=== PATIENT | male | born 1955 | race Caucasian/White ===

== ENCOUNTER 2021-01-26 19:30 | Inpatient (IN) | payer MEDICARE, MEDICAID ==
[2021-01-26] MEDS ORDERED: Morphine 4 MG/ML VIAL ONE ×2 (20:24→22:43)
[2021-01-26] MEDS ORDERED: Ondansetron ODT 4 MG TAB ONE (20:25)
[2021-01-26] MEDS ORDERED: Nitroglycerin 2% Ointment 1 INCH/1 GM Packet ONE (20:25)
[2021-01-26] MEDS ORDERED: Aspirin Chewable 81 MG TAB ONE (20:25)
[2021-01-26 20:58] LABS: #Basophils 0.1 thou/uL (0.0-0.2); #Eosinphils 0.1 thou/uL (0.0-0.7); #Monocytes 1.1 thou/uL (0.11-0.59); #Neutrophils 6.7 thou/uL (1.40-6.50); %Eosinophils 0.6 % (0.0-10.0); %Lymphocytes 19.8 % (21.0-51.0); %Monocytes 10.9 % (0.0-10.0); %Neutrophils 67.7 % (42.0-75.0); Hemoglobin 15.8 g/dL (14.0-18.0); Mean Corpuscular HGB CONC 34.5 g/dL (32.0-36.0); Mean Corpuscular Hemoglobin 31.7 pg (27.0-31.0); Mean Corpuscular Volume 91.7 fL (78.0-98.0); Mean Platelet Volume 6.3 fL (7.4-10.4); Platelet Count 232 thou/uL (130-400); RBC Distribution Width 12.3 % (11.5-14.5); White Blood Cell (WBC) Count 9.9 thou/uL (4.8-10.8)
[2021-01-26 21:19] LABS: ALT (SGPT) 22 U/L (8-55); AST (SGOT) 15 U/L (5-34); Albumin 4.1 g/dL (3.4-4.8); Alkaline Phosphatase 69 U/L (40-110); Anion Gap 13 mmol/L (10-20); BUN (Urea Nitrogen) 17 mg/dL (8.4-25.7); Bilirubin, Total 0.3 mg/dL (0.2-1.2); Calc. Creatinine Clearance 0 mL/min (70-130); Calcium 9.2 mg/dL (7.8-10.44); Carbon Dioxide 25 mmol/L (23-31); Chloride 102 mmol/L (98-107); Globulin 2.8 g/dL (2.4-3.5); Glucose 93 mg/dL (80-115); Lipase 41 U/L (8-78); Potassium 4.7 mmol/L (3.5-5.1); Protein, Total 6.9 g/dL (5.8-8.1); Sodium 135 mmol/L (136-145)
[2021-01-26 21:50] LABS: Bilirubin Negative (Negative); Blood, Urine Negative (Negative); Clarity Clear (Clear); Glucose, Urine (Dipstick) Normal (Negative); Ketone, Urine Negative (Negative); Leukocyte Negative Leu/uL (Negative); Nitrite Negative (Negative); Protein, Urine (Dipstick) Negative (Neg-Trace); Specific Gravity, Urine 1.009 (1.002-1.036); Urobilinogen Normal mg/dL (Less than 2); pH, Urine 6.5 (5.0-9.0)
[2021-01-26] MEDS ORDERED: Ondansetron PF 4 MG/2 ML Vial ONE (22:49)
[2021-01-27 00:30] LABS: Troponin I Less than 0.010 ng/mL (< 0.028)
[2021-01-27 01:36] VITALS: BMI 27.6
[2021-01-27 03:04] LABS: Troponin I Less than 0.010 ng/mL (< 0.028)
[2021-01-27] MEDS: Morphine 2 MG/ML VIAL SLOW IVP PRN ×2 (03:54→08:16)
[2021-01-27] MEDS ORDERED: Ondansetron PF 4 MG/2 ML Vial IVP PRN (04:22)
[2021-01-27] MEDS ORDERED: Aspirin 325 MG TAB PO SCH ×2 (08:00→08:45)
[2021-01-27] MEDS ORDERED: Nitroglycerin 0.4 MG TAB (25 Tab Bottle) SL PRN (08:39)
[2021-01-27] MEDS ORDERED: Acetaminophen 325 MG TAB PO PRN (08:41)
[2021-01-27] MEDS ORDERED: Senokot S 8.6-50 MG TAB PO PRN (08:41)
[2021-01-27] MEDS ORDERED: Calcium Carbonate 500 MG ChewTAB PO PRN (08:41)
[2021-01-27] MEDS ORDERED: Cyclobenzaprine 10 MG TAB PO PRN (08:42)
[2021-01-27] MEDS ORDERED: hydrALAZINE 20 MG/ML VIAL SLOW IVP PRN (08:43)
[2021-01-27] MEDS ORDERED: Famotidine 20 MG TAB PO SCH (09:00)
[2021-01-27] MEDS: clonazePAM 1 MG TAB PO SCH ×2 (09:15→20:53)
[2021-01-27] MEDS: hydrALAZINE 25 MG TAB PO SCH ×3 (09:17→20:53)
[2021-01-27] MEDS ORDERED: Ketorolac Tromethamine 30 MG/ML VIAL IVP SCH (10:30)
[2021-01-27] MEDS: NIFEdipine XL 60 MG TAB PO SCH (11:02)
[2021-01-27] MEDS: Carvedilol 25 MG TAB PO SCH ×2 (11:03→20:53)
[2021-01-27] MEDS: Sodium Chloride 0.9% 1,000 ML IV SCH ×2 (11:03→20:54)
[2021-01-27 13:02] LABS: SARS-CoV-2 PCR by NAA Not Detected (NotDetected)
[2021-01-27] MEDS: Ibuprofen 600 MG TAB PO SCH ×2 (13:41→20:55)
[2021-01-27] MEDS ORDERED: Morphine 2 MG/ML VIAL SLOW IVP PRN (14:22)
[2021-01-27] MEDS ORDERED: Lidocaine 5% Patch TD SCH (14:30)
[2021-01-27] MEDS: HYDROcodone/Acetaminophen 5/325 mg Tablet PO PRN (21:29)
[2021-01-28] MEDS: HYDROcodone/Acetaminophen 5/325 mg Tablet PO PRN ×2 (01:31→05:26)
[2021-01-28] MEDS ORDERED: Transdermal Patch Removal TOP SCH (02:30)
[2021-01-28 04:35] LABS: #Basophils 0.1 thou/uL (0.0-0.2); #Lymphocytes 2.2 thou/uL (1.20-3.40); #Monocytes 0.8 thou/uL (0.11-0.59); %Eosinophils 0.5 % (0.0-10.0); %Lymphocytes 27.1 % (21.0-51.0); %Monocytes 10.2 % (0.0-10.0); %Neutrophils 61.2 % (42.0-75.0); Hemoglobin 13.8 g/dL (14.0-18.0); Mean Corpuscular HGB CONC 33.3 g/dL (32.0-36.0); Mean Corpuscular Hemoglobin 30.7 pg (27.0-31.0); Mean Corpuscular Volume 92.2 fL (78.0-98.0); Mean Platelet Volume 6.2 fL (7.4-10.4); Platelet Count 204 thou/uL (130-400); RBC Distribution Width 12.2 % (11.5-14.5); White Blood Cell (WBC) Count 8.2 thou/uL (4.8-10.8)
[2021-01-28 04:56] LABS: Anion Gap 12 mmol/L (10-20); BUN (Urea Nitrogen) 16 mg/dL (8.4-25.7); Calc. Creatinine Clearance 90 mL/min (70-130); Calcium 8.3 mg/dL (7.8-10.44); Carbon Dioxide 26 mmol/L (23-31); Chloride 104 mmol/L (98-107); Glucose 85 mg/dL (80-115); Potassium 4.5 mmol/L (3.5-5.1); Sodium 137 mmol/L (136-145)
[2021-01-28] MEDS: hydrALAZINE 25 MG TAB PO SCH (08:37)
[2021-01-28] MEDS: Ibuprofen 600 MG TAB PO SCH (08:38)
[2021-01-28] MEDS: Carvedilol 25 MG TAB PO SCH (08:38)
[2021-01-28] MEDS: clonazePAM 1 MG TAB PO SCH (08:39)
[2021-01-28] MEDS ORDERED: Ketorolac Tromethamine 60 MG/2 ML VIAL IM SCH (10:45)
[2021-01-28] MEDS ORDERED: Ketorolac Tromethamine 30 MG/ML VIAL IM SCH (11:00)
[2021-01-28 11:29] VITALS: BP 149/73; TEMP 97.5
[2021-01-28] MEDS: NIFEdipine XL 60 MG TAB PO SCH (11:29)
== END 2021-01-28 13:20 | disposition home or self-care (01) | DRG 194 ==
LOC: ERS 19:30 → 2NO 22:04 → OBSVTOIN 01-28 10:01
PROVIDERS: ADMIT Internal Medicine; ATTEND Family Medicine
DX: R09.1 Pleurisy (principal); E87.1 Hypo-osmolality and hyponatremia; I42.9 Cardiomyopathy, unspecified; Z20.822 Contact with and (suspected) exposure to COVID-19; I10 Essential (primary) hypertension; F41.9 Anxiety disorder, unspecified; R00.1 Bradycardia, unspecified; M19.90 Unspecified osteoarthritis, unspecified site; N18.2 Chronic kidney disease, stage 2 (mild); I12.9 Hypertensive chronic kidney disease with stage 1 through stage 4 chronic kidney disease, or unspecified chronic kidney disease; E78.5 Hyperlipidemia, unspecified; Z96.619 Presence of unspecified artificial shoulder joint; Z88.1 Allergy status to other antibiotic agents; Z88.0 Allergy status to penicillin; Z88.8 Allergy status to other drugs, medicaments and biological substances; Z79.899 Other long term (current) drug therapy; Z85.46 Personal history of malignant neoplasm of prostate; Z90.79 Acquired absence of other genital organ(s); Z83.3 Family history of diabetes mellitus
CPT/HCPCS: 36415; 71045; 80048; 80053; 81003; 83690; 84484; 85025; 85379; 93005; 93010; 94760; 96374; 96375; 96376; G0378; J1885; J2270; J2405; J7050; Q0162; U0003; U0005

== ENCOUNTER 2021-04-06 14:59 | Emergency (ER) | payer MEDICARE ==
[2021-04-06] MEDS ORDERED: Lidocaine 1% w/Epinephrine 1:100K 20 ML VIAL ONE (15:40)
[2021-04-06] MEDS ORDERED: Acetaminophen 500 MG TAB ONE (16:01)
== END 2021-04-06 16:03 | disposition home or self-care (01) ==
LOC: ERS 14:59
DX: L03.113 Cellulitis of right upper limb (principal); M79.81 Nontraumatic hematoma of soft tissue; I11.0 Hypertensive heart disease with heart failure; I50.9 Heart failure, unspecified
CPT/HCPCS: 10060

== ENCOUNTER 2021-04-08 08:07 | Emergency (ER) | payer MEDICARE, MEDICAID ==
[2021-04-08 09:07] LABS: #Basophils 0.1 thou/uL (0.0-0.2); #Eosinphils 0.1 thou/uL (0.0-0.7); #Lymphocytes 1.7 thou/uL (1.20-3.40); #Monocytes 1.1 thou/uL (0.11-0.59); #Neutrophils 6.5 thou/uL (1.40-6.50); %Basophils 0.6 % (0.0-1.0); %Eosinophils 0.6 % (0.0-10.0); %Lymphocytes 17.8 % (21.0-51.0); %Monocytes 11.3 % (0.0-10.0); %Neutrophils 69.7 % (42.0-75.0); Hemoglobin 14.2 g/dL (14.0-18.0); Mean Corpuscular HGB CONC 34.5 g/dL (32.0-36.0); Mean Corpuscular Hemoglobin 32.2 pg (27.0-31.0); Mean Corpuscular Volume 93.3 fL (78.0-98.0); Mean Platelet Volume 5.9 fL (7.4-10.4); Platelet Count 220 thou/uL (130-400); RBC Distribution Width 12.4 % (11.5-14.5); Red Blood Cell (RBC) Count 4.42 mill/uL (4.70-6.10); White Blood Cell (WBC) Count 9.3 thou/uL (4.8-10.8)
[2021-04-08 09:27] LABS: ALT (SGPT) 19 U/L (8-55); AST (SGOT) 14 U/L (5-34); Albumin 3.5 g/dL (3.4-4.8); Alkaline Phosphatase 59 U/L (40-110); Anion Gap 10 mmol/L (10-20); BUN (Urea Nitrogen) 17 mg/dL (8.4-25.7); Bilirubin, Total 0.3 mg/dL (0.2-1.2); CRP (Inflammatory) 0.89 mg/dL (= or < 0.5); Calc. Creatinine Clearance 0 mL/min (70-130); Calcium 8.6 mg/dL (7.8-10.44); Carbon Dioxide 27 mmol/L (23-31); Chloride 104 mmol/L (98-107); Globulin 2.8 g/dL (2.4-3.5); Glucose 110 mg/dL (80-115); Potassium 3.8 mmol/L (3.5-5.1); Protein, Total 6.3 g/dL (5.8-8.1); Sodium 137 mmol/L (136-145)
== END 2021-04-08 10:25 | disposition home or self-care (01) ==
LOC: ERS 08:07
DX: L03.113 Cellulitis of right upper limb (principal); I11.0 Hypertensive heart disease with heart failure; I50.9 Heart failure, unspecified; Z79.899 Other long term (current) drug therapy
CPT/HCPCS: 36415; 80053; 85025; 85652; 86140; 87040; 87070; 87205; 99283

== ENCOUNTER 2021-05-08 12:56 | Inpatient (IN) | payer MEDICARE, MEDICAID ==
[2021-05-08 13:43] LABS: Hemoglobin 14.6 g/dL (14.0-18.0); Mean Corpuscular HGB CONC 34.6 g/dL (32.0-36.0); Mean Corpuscular Volume 92.5 fL (78.0-98.0); Mean Platelet Volume 5.9 fL (7.4-10.4); Platelet Count 204 thou/uL (130-400); RBC Distribution Width 12.3 % (11.5-14.5); Red Blood Cell (RBC) Count 4.56 mill/uL (4.70-6.10); White Blood Cell (WBC) Count 7.2 thou/uL (4.8-10.8)
[2021-05-08 14:01] LABS: Band 2 % (5-11); Eosinophils 1 % (0-10); Lymphocytes 22 % (21-51); MDiff Complete? YES; Monocytes 3 % (0-10); Neutrophil 69 % (42-75); Platelet Morphology Comment Appears Adequate; RBC Morphology Normal; Reactive Lymphocytes 2 % (0-10)
[2021-05-08 14:05] LABS: ALT (SGPT) 35 U/L (8-55); AST (SGOT) 21 U/L (5-34); Albumin 3.6 g/dL (3.4-4.8); Alkaline Phosphatase 61 U/L (40-110); Anion Gap 10 mmol/L (10-20); BUN (Urea Nitrogen) 20 mg/dL (8.4-25.7); Bilirubin, Total 0.3 mg/dL (0.2-1.2); Calc. Creatinine Clearance 0 mL/min (70-130); Calcium 8.9 mg/dL (7.8-10.44); Carbon Dioxide 26 mmol/L (23-31); Chloride 105 mmol/L (98-107); Glucose 112 mg/dL (80-115); Protein, Total 6.6 g/dL (5.8-8.1); Sodium 137 mmol/L (136-145)
[2021-05-08 14:40] LABS: CKMB 1.4 ng/mL (0-6.6)
[2021-05-08] MEDS ORDERED: Aspirin Chewable 81 MG TAB ONE (15:27)
[2021-05-08] MEDS ORDERED: Acetaminophen 325 MG TAB PO PRN (16:35)
[2021-05-08] MEDS ORDERED: Ondansetron ODT 4 MG TAB PO PRN ×2 (16:36→16:48)
[2021-05-08] MEDS ORDERED: Ondansetron PF 4 MG/2 ML Vial IVP PRN ×2 (16:36→16:48)
[2021-05-08] MEDS ORDERED: Calcium Carbonate 500 MG ChewTAB PO PRN (16:48)
[2021-05-08] MEDS ORDERED: Senokot S 8.6-50 MG TAB PO PRN (16:48)
[2021-05-08] MEDS ORDERED: Carvedilol 25 MG TAB PO SCH (17:00)
[2021-05-08] MEDS: Nitroglycerin 2% Ointment 1 INCH/1 GM Packet TOP SCH (17:10)
[2021-05-08] MEDS: Acetaminophen 325 MG TAB PO PRN ×2 (17:24→21:18)
[2021-05-08] MEDS ORDERED: Lidocaine 2% Viscous Solution 10 ML, Aluminum & Magnesium Hydroxide 30 ML SSW SCH (20:15)
[2021-05-08] MEDS: Nitroglycerin 0.4 MG TAB (25 Tab Bottle) SL PRN ×2 (20:23→20:33)
[2021-05-08 20:33] LABS: Troponin I 0.014 ng/mL (< 0.028)
[2021-05-08] MEDS: clonazePAM 1 MG TAB PO SCH (21:19)
[2021-05-08 23:14] LABS: Troponin I 0.014 ng/mL (< 0.028)
[2021-05-09] MEDS: Nitroglycerin 2% Ointment 1 INCH/1 GM Packet TOP SCH ×3 (00:15→16:40)
[2021-05-09 00:30] LABS: SARS-CoV-2 PCR by NAA Not Detected (NotDetected)
[2021-05-09] MEDS: Aspirin 325 mg Enteric Coated Tablet PO SCH (09:17)
[2021-05-09] MEDS: clonazePAM 1 MG TAB PO SCH ×2 (09:17→21:37)
[2021-05-09] MEDS: NIFEdipine XL 60 MG TAB PO SCH (09:17)
[2021-05-09] MEDS ORDERED: Enoxaparin Sodium 40 MG/0.4 ML SYRINGE SC SCH (12:30)
[2021-05-09] MEDS: Carvedilol 25 MG TAB PO SCH ×2 (13:31→21:36)
[2021-05-09] MEDS: Atorvastatin Calcium 40 MG TAB PO SCH (21:36)
[2021-05-10] MEDS: Nitroglycerin 2% Ointment 1 INCH/1 GM Packet TOP SCH ×3 (02:56→17:23)
[2021-05-10 07:31] VITALS: BMI 29.0
[2021-05-10] MEDS ORDERED: Enoxaparin Sodium 40 MG/0.4 ML SYRINGE SC SCH (09:00)
[2021-05-10] MEDS: Aspirin 325 mg Enteric Coated Tablet PO SCH (09:28)
[2021-05-10] MEDS: Ubidecarenone 50 MG CAP PO SCH (09:29)
[2021-05-10] MEDS: clonazePAM 1 MG TAB PO SCH ×2 (09:29→20:35)
[2021-05-10] MEDS: NIFEdipine XL 60 MG TAB PO SCH (09:29)
[2021-05-10] MEDS: Carvedilol 25 MG TAB PO SCH ×2 (09:29→20:35)
[2021-05-10] MEDS ORDERED: Sodium Chloride 0.9% 1,000 ML IV SCH (10:30)
[2021-05-10] MEDS ORDERED: Iopamidol 370 76% 100 ML VIAL ONE (10:51)
[2021-05-10] MEDS ORDERED: Fentanyl 100 MCG/2 ML VIAL ONE (11:42)
[2021-05-10] MEDS ORDERED: Midazolam HCl 2 mg/2 ml Vial ONE (11:43)
[2021-05-10] MEDS ORDERED: Sodium Chloride 0.9% 200 ML IV PRN (12:40)
[2021-05-10] MEDS: Acetaminophen 325 MG TAB PO PRN (13:39)
[2021-05-10] MEDS: Acetaminophen/Codeine 30-300mg Tablet PO PRN (20:35)
[2021-05-10] MEDS: Atorvastatin Calcium 40 MG TAB PO SCH (20:35)
[2021-05-11] MEDS: Nitroglycerin 2% Ointment 1 INCH/1 GM Packet TOP SCH ×3 (01:10→15:58)
[2021-05-11] MEDS: Enoxaparin Sodium 40 MG/0.4 ML SYRINGE SC SCH (09:15)
[2021-05-11] MEDS: clonazePAM 1 MG TAB PO SCH ×2 (09:15→21:01)
[2021-05-11] MEDS: NIFEdipine XL 60 MG TAB PO SCH (09:15)
[2021-05-11] MEDS: Acetaminophen/Codeine 30-300mg Tablet PO PRN ×2 (09:15→15:58)
[2021-05-11] MEDS: Aspirin 325 mg Enteric Coated Tablet PO SCH (09:16)
[2021-05-11] MEDS: Carvedilol 25 MG TAB PO SCH ×2 (09:16→21:01)
[2021-05-11] MEDS: Ubidecarenone 50 MG CAP PO SCH (09:16)
[2021-05-11] MEDS: Atorvastatin Calcium 40 MG TAB PO SCH (21:01)
[2021-05-12] MEDS: Nitroglycerin 2% Ointment 1 INCH/1 GM Packet TOP SCH ×3 (03:29→17:22)
[2021-05-12] MEDS: Enoxaparin Sodium 40 MG/0.4 ML SYRINGE SC SCH (08:53)
[2021-05-12] MEDS: Aspirin 325 mg Enteric Coated Tablet PO SCH (08:55)
[2021-05-12] MEDS: NIFEdipine XL 60 MG TAB PO SCH (08:55)
[2021-05-12] MEDS: Acetaminophen/Codeine 30-300mg Tablet PO PRN ×2 (08:56→17:22)
[2021-05-12] MEDS: clonazePAM 1 MG TAB PO SCH (08:56)
[2021-05-12] MEDS: Carvedilol 25 MG TAB PO SCH (08:56)
[2021-05-12] MEDS: Ubidecarenone 50 MG CAP PO SCH (09:07)
[2021-05-12] MEDS ORDERED: Iopamidol 370 76% 100 ML VIAL ONE (10:28)
[2021-05-12 17:32] VITALS: BP 125/61; TEMP 97.3
== END 2021-05-12 19:48 | disposition home or self-care (01) | DRG 287 ==
LOC: ERS 12:56 → 2NO 15:22 → OBSVTOIN 05-10 14:46
PROVIDERS: ADMIT Internal Medicine; ATTEND Internal Medicine
PROC: 4A023N7 Measurement of Cardiac Sampling and Pressure, Left Heart, Percutaneous Approach (ICD-10-PCS; principal; 2021-05-10)
PROC: B2111ZZ Fluoroscopy of Multiple Coronary Arteries using Low Osmolar Contrast (ICD-10-PCS; 2021-05-10)
DX: I25.110 Atherosclerotic heart disease of native coronary artery with unstable angina pectoris (principal); E78.5 Hyperlipidemia, unspecified; Z20.822 Contact with and (suspected) exposure to COVID-19; F41.9 Anxiety disorder, unspecified; M19.90 Unspecified osteoarthritis, unspecified site; I12.9 Hypertensive chronic kidney disease with stage 1 through stage 4 chronic kidney disease, or unspecified chronic kidney disease; N18.2 Chronic kidney disease, stage 2 (mild); Z88.1 Allergy status to other antibiotic agents; Z88.0 Allergy status to penicillin; Z79.82 Long term (current) use of aspirin; Z79.899 Other long term (current) drug therapy; Z85.46 Personal history of malignant neoplasm of prostate; Z90.79 Acquired absence of other genital organ(s)
CPT/HCPCS: 36415; 71045; 75574; 80053; 80061; 82553; 83880; 84484; 85025; 93005; 93010; 93458; 94760; 96372; 99152; G0378; J1650; J2250; J3010; J7050; Q9967; U0003; U0005

== ENCOUNTER 2021-06-08 17:05 | Inpatient (IN) | payer OTHER, MEDICAID ==
[2021-06-08 18:13] LABS: #Basophils 0.1 thou/uL (0.0-0.2); #Eosinphils 0.1 thou/uL (0.0-0.7); #Lymphocytes 1.8 thou/uL (1.20-3.40); #Neutrophils 7.8 thou/uL (1.40-6.50); %Basophils 0.5 % (0.0-1.0); %Eosinophils 0.5 % (0.0-10.0); %Lymphocytes 16.9 % (21.0-51.0); Hemoglobin 15.3 g/dL (14.0-18.0); Mean Corpuscular HGB CONC 33.9 g/dL (32.0-36.0); Mean Corpuscular Hemoglobin 31.1 pg (27.0-31.0); Mean Corpuscular Volume 91.6 fL (78.0-98.0); Platelet Count 236 thou/uL (130-400); Red Blood Cell (RBC) Count 4.91 mill/uL (4.70-6.10); White Blood Cell (WBC) Count 10.7 thou/uL (4.8-10.8)
[2021-06-08 18:23] LABS: ALT (SGPT) 34 U/L (8-55); AST (SGOT) 20 U/L (5-34); Albumin 3.9 g/dL (3.4-4.8); Alkaline Phosphatase 82 U/L (40-110); Anion Gap 12 mmol/L (10-20); BUN (Urea Nitrogen) 18 mg/dL (8.4-25.7); Bilirubin, Total 0.3 mg/dL (0.2-1.2); Calc. Creatinine Clearance 0 mL/min (70-130); Calcium 8.7 mg/dL (7.8-10.44); Carbon Dioxide 27 mmol/L (23-31); Chloride 102 mmol/L (98-107); Globulin 2.8 g/dL (2.4-3.5); Glucose 118 mg/dL (80-115); Potassium 4.1 mmol/L (3.5-5.1); Protein, Total 6.7 g/dL (5.8-8.1); Sodium 137 mmol/L (136-145)
[2021-06-08] MEDS ORDERED: Diltiazem 125 MG/25 ML ONE ×2 (20:52→21:21)
[2021-06-08] MEDS ORDERED: Enoxaparin Sodium 100 MG/ML SYRINGE SC SCH (21:00)
[2021-06-08] MEDS ORDERED: Diltiazem HCl 125 MG, Admixture Fee 1 EACH in Sodium Chloride 0.9% 100 ML IVPB SCH (21:00)
[2021-06-08] MEDS ORDERED: Enoxaparin Sodium 100 MG/ML SYRINGE ONE (21:01)
[2021-06-08 22:30] LABS: SARS-CoV-2 NAA Rapid Test Not Detected (NotDetected)
[2021-06-08 22:52] LABS: Troponin I Less than 0.010 ng/mL (< 0.028)
[2021-06-08] MEDS ORDERED: Ondansetron PF 4 MG/2 ML Vial IVP PRN (23:34)
[2021-06-09 00:18] VITALS: BMI 28.8
[2021-06-09] MEDS ORDERED: clonazePAM 1 MG TAB PO SCH (01:30)
[2021-06-09] MEDS: Acetaminophen 325 MG TAB PO PRN (01:35)
[2021-06-09 04:57] LABS: %Lymphocytes 23.8 % (21.0-51.0); Mean Corpuscular Volume 92.8 fL (78.0-98.0); RBC Distribution Width 12.1 % (11.5-14.5)
[2021-06-09 05:15] LABS: #Monocytes 0.9 thou/uL (0.11-0.59); #Neutrophils 5.4 thou/uL (1.40-6.50); %Basophils 0.5 % (0.0-1.0); %Eosinophils 0.5 % (0.0-10.0); %Monocytes 10.3 % (0.0-10.0); %Neutrophils 64.9 % (42.0-75.0); Hemoglobin 13.7 g/dL (14.0-18.0); Mean Corpuscular HGB CONC 33.4 g/dL (32.0-36.0); Mean Platelet Volume 6.2 fL (7.4-10.4); Platelet Count 213 thou/uL (130-400); Red Blood Cell (RBC) Count 4.43 mill/uL (4.70-6.10); White Blood Cell (WBC) Count 8.4 thou/uL (4.8-10.8)
[2021-06-09 05:20] LABS: Anion Gap 12 mmol/L (10-20); BUN (Urea Nitrogen) 17 mg/dL (8.4-25.7); Calc. Creatinine Clearance 88 mL/min (70-130); Calcium 8.3 mg/dL (7.8-10.44); Carbon Dioxide 24 mmol/L (23-31); Chloride 105 mmol/L (98-107); Glucose 84 mg/dL (80-115); Potassium 3.8 mmol/L (3.5-5.1); Sodium 137 mmol/L (136-145)
[2021-06-09 07:29] LABS: Magnesium 2.2 mg/dL (1.6-2.6)
[2021-06-09] MEDS: Carvedilol 25 MG TAB PO SCH ×2 (08:35→21:30)
[2021-06-09] MEDS ORDERED: Aspirin 325 mg Enteric Coated Tablet PO SCH (09:00)
[2021-06-09] MEDS ORDERED: Nitroglycerin 0.4 MG TAB (25 Tab Bottle) SL PRN (15:07)
[2021-06-09] MEDS ORDERED: Diltiazem HCl 125 MG, Admixture Fee 1 EACH in Sodium Chloride 0.9% 100 ML IVPB SCH (15:30)
[2021-06-09] MEDS: Dronedarone HCl 400 MG TAB PO SCH (17:28)
[2021-06-09] MEDS: Atorvastatin Calcium 40 MG TAB PO SCH (21:30)
[2021-06-09] MEDS: Apixaban 5 MG TAB PO SCH (21:30)
[2021-06-10 05:26] LABS: #Basophils 0.1 thou/uL (0.0-0.2); #Lymphocytes 1.6 thou/uL (1.20-3.40); #Monocytes 0.8 thou/uL (0.11-0.59); #Neutrophils 5.3 thou/uL (1.40-6.50); %Basophils 0.9 % (0.0-1.0); %Eosinophils 0.5 % (0.0-10.0); %Monocytes 10.5 % (0.0-10.0); %Neutrophils 68.1 % (42.0-75.0); Hemoglobin 13.8 g/dL (14.0-18.0); Mean Corpuscular HGB CONC 33.5 g/dL (32.0-36.0); Mean Corpuscular Volume 92.6 fL (78.0-98.0); Mean Platelet Volume 5.9 fL (7.4-10.4); Platelet Count 200 thou/uL (130-400); Red Blood Cell (RBC) Count 4.45 mill/uL (4.70-6.10); White Blood Cell (WBC) Count 7.7 thou/uL (4.8-10.8)
[2021-06-10 05:42] LABS: Anion Gap 10 mmol/L (10-20); BUN (Urea Nitrogen) 12 mg/dL (8.4-25.7); Calc. Creatinine Clearance 86 mL/min (70-130); Calcium 8.2 mg/dL (7.8-10.44); Carbon Dioxide 27 mmol/L (23-31); Chloride 103 mmol/L (98-107); Glucose 94 mg/dL (80-115); Magnesium 2.1 mg/dL (1.6-2.6); Potassium 4.1 mmol/L (3.5-5.1); Sodium 136 mmol/L (136-145)
[2021-06-10] MEDS: Apixaban 5 MG TAB PO SCH ×2 (09:12→21:03)
[2021-06-10] MEDS: Dronedarone HCl 400 MG TAB PO SCH ×2 (09:12→17:54)
[2021-06-10] MEDS: Aspirin 81 mg Enteric Coated Tablet PO SCH (09:12)
[2021-06-10] MEDS: Carvedilol 25 MG TAB PO SCH ×2 (09:16→21:03)
[2021-06-10] MEDS: Acetaminophen 325 MG TAB PO PRN (09:22)
[2021-06-10] MEDS: Atorvastatin Calcium 40 MG TAB PO SCH (21:03)
[2021-06-11] MEDS: Acetaminophen 325 MG TAB PO PRN ×2 (03:15→13:00)
[2021-06-11] MEDS ORDERED: clonazePAM 1 MG TAB PO SCH (04:15)
[2021-06-11 04:32] LABS: #Eosinphils 0.1 thou/uL (0.0-0.7); #Lymphocytes 1.7 thou/uL (1.20-3.40); #Monocytes 0.9 thou/uL (0.11-0.59); #Neutrophils 5.7 thou/uL (1.40-6.50); %Basophils 0.3 % (0.0-1.0); %Eosinophils 0.7 % (0.0-10.0); %Lymphocytes 20.4 % (21.0-51.0); %Monocytes 10.5 % (0.0-10.0); %Neutrophils 68.1 % (42.0-75.0); Hemoglobin 13.9 g/dL (14.0-18.0); Mean Corpuscular Hemoglobin 30.7 pg (27.0-31.0); Mean Corpuscular Volume 93.2 fL (78.0-98.0); Mean Platelet Volume 5.9 fL (7.4-10.4); Platelet Count 207 thou/uL (130-400); Red Blood Cell (RBC) Count 4.52 mill/uL (4.70-6.10); White Blood Cell (WBC) Count 8.4 thou/uL (4.8-10.8)
[2021-06-11 04:54] LABS: Anion Gap 9 mmol/L (10-20); BUN (Urea Nitrogen) 14 mg/dL (8.4-25.7); Calc. Creatinine Clearance 81 mL/min (70-130); Calcium 8.3 mg/dL (7.8-10.44); Carbon Dioxide 27 mmol/L (23-31); Chloride 103 mmol/L (98-107); Glucose 86 mg/dL (80-115); Potassium 3.9 mmol/L (3.5-5.1); Sodium 135 mmol/L (136-145)
[2021-06-11] MEDS: Dronedarone HCl 400 MG TAB PO SCH (08:46)
[2021-06-11] MEDS: Apixaban 5 MG TAB PO SCH (08:46)
[2021-06-11] MEDS: Carvedilol 25 MG TAB PO SCH (08:46)
[2021-06-11] MEDS: Aspirin 81 mg Enteric Coated Tablet PO SCH (08:46)
[2021-06-11 12:46] VITALS: BP 140/76; TEMP 98.5
[2021-06-12] MEDS ORDERED: FLU VACC QS2021-22(6MOS UP)/PF 60 MCG/0.5 ML SYRINGE IM ONE (09:00)
== END 2021-06-11 14:00 | disposition home or self-care (01) | DRG 309 ==
LOC: ERS 17:05 → 2NO 22:07
PROVIDERS: ADMIT Internal Medicine; ATTEND Internal Medicine
DX: I48.91 Unspecified atrial fibrillation (principal); E87.1 Hypo-osmolality and hyponatremia; I10 Essential (primary) hypertension; Z20.822 Contact with and (suspected) exposure to COVID-19; E78.5 Hyperlipidemia, unspecified; I25.10 Atherosclerotic heart disease of native coronary artery without angina pectoris; F41.9 Anxiety disorder, unspecified; Z88.0 Allergy status to penicillin; Z88.1 Allergy status to other antibiotic agents; Z85.46 Personal history of malignant neoplasm of prostate; Z98.890 Other specified postprocedural states; Z90.79 Acquired absence of other genital organ(s); Z79.82 Long term (current) use of aspirin; Z79.899 Other long term (current) drug therapy
CPT/HCPCS: 36415; 71046; 71275; 74174; 80048; 80053; 83735; 84443; 84484; 85025; 93005; 93306; 96365; 96372; J1650; J3490; U0002

== ENCOUNTER 2021-10-18 13:18 | Outpatient (CLI) | payer MEDICARE, OTHER ==
[2021-10-18 14:33] LABS: Hemoglobin 15.7 g/dL (13.5-17.5); Mean Corpuscular HGB CONC 35.1 g/dL (32.0-36.0); Mean Corpuscular Hemoglobin 31.1 pg (27.0-33.0); Mean Corpuscular Volume 88.5 fl (81.2-95.1); Mean Platelet Volume 8.4 fl (7.4-10.4); Platelet Count 255 10x3/uL (150-450); RBC Distribution Width 12.6 % (11.5-14.5); Red Blood Cell (RBC) Count 5.05 10x6/uL (4.32-5.72)
[2021-10-18 14:50] LABS: Prothrombin Time 10.9 sec (9.5-12.1)
[2021-10-18 14:59] LABS: Anion Gap 13 mmol/L (10-20); BUN (Urea Nitrogen) 17 mg/dL (8.4-25.7); Calc. Creatinine Clearance 0 mL/min (70-130); Calcium 9.1 mg/dL (7.8-10.44); Carbon Dioxide 24 mmol/L (23-31); Chloride 105 mmol/L (98-107); Glucose 92 mg/dL (80-115); Potassium 4.4 mmol/L (3.5-5.1); Sodium 138 mmol/L (136-145)
== END 2021-10-18 13:19 | disposition home or self-care (01) ==
LOC: LABBT 13:18
PROVIDERS: ATTEND Internal Medicine Cardiovascular Disease
DX: Z01.812 Encounter for preprocedural laboratory examination (principal); I48.0 Paroxysmal atrial fibrillation; Z98.890 Other specified postprocedural states
CPT/HCPCS: 80048; 85027; 85610; U0003; U0005

== ENCOUNTER 2021-10-21 08:33 | Day surgery (SDC) | payer MEDICARE, OTHER ==
[2021-10-19 14:50] VITALS: BMI 29.9
[2021-10-21] MEDS ORDERED: Rocuronium Bromide 10 MG/ML (10ML VIAL) ONE (10:22)
[2021-10-21] MEDS ORDERED: PROPOFOL 200 MG/20 ML VIAL ONE (10:22)
[2021-10-21] MEDS ORDERED: Lidocaine 1% PF 5 ML VIAL ONE (10:22)
[2021-10-21] MEDS ORDERED: Heparin 25,000 units/D5W 500 ML ONE (11:49)
[2021-10-21] MEDS ORDERED: Protamine Sulfate 50 MG/5 ML VIAL ONE (11:49)
[2021-10-21] MEDS ORDERED: Heparin 10,000 UNITS/ 10 ML VIAL ONE (11:49)
[2021-10-21] MEDS ORDERED: fentaNYL Citrate/PF 100 MCG/2 ML SYRINGE ONE (14:07)
[2021-10-22] MEDS ORDERED: SUGAMMADEX SODIUM 200 MG/2 ML VIAL ONE (06:31)
== END 2021-10-21 17:55 | disposition home or self-care (01) ==
LOC: SDC 08:33
PROVIDERS: ATTEND Internal Medicine Cardiovascular Disease
PROC: 4A023FZ Measurement of Cardiac Rhythm, Percutaneous Approach (ICD-10-PCS; principal; 2021-10-21)
PROC: 4A0234Z Measurement of Cardiac Electrical Activity, Percutaneous Approach (ICD-10-PCS; 2021-10-21)
PROC: 02583ZZ Destruction of Conduction Mechanism, Percutaneous Approach (ICD-10-PCS; 2021-10-21)
PROC: 02K83ZZ Map Conduction Mechanism, Percutaneous Approach (ICD-10-PCS; 2021-10-21)
DX: I48.0 Paroxysmal atrial fibrillation (principal); I48.3 Typical atrial flutter; Z88.0 Allergy status to penicillin; Z88.1 Allergy status to other antibiotic agents
CPT/HCPCS: 85347 ×2; 93005; 93312; 93613; 93655; 93656; 93662; C1730; C1731; C1732; C1759; C1760; C2630; J1644; J2704; J2720

== ENCOUNTER 2023-10-31 18:18 | Observation (INO) | payer OTHER, MEDICAID ==
[2023-10-31 20:22] LABS: #Basophils 0.04 10x3/uL (0.0-0.2); %Basophils 0.5 % (0.0-1.0); %Eosinophils 0.7 % (0.0-10.0); %Neutrophils 68.3 % (42.0-75.0); Hematocrit 45.8 % (42.0-52.0); Hemoglobin 15.3 g/dL (14.0-18.0); Mean Corpuscular HGB CONC 33.4 g/dL (32.0-36.0); Mean Corpuscular Hemoglobin 30.7 pg (27.0-31.0); Mean Corpuscular Volume 91.8 fL (78.0-98.0); Mean Platelet Volume 8.7 fL (7.4-10.4); Platelet Count 216 10x3/uL (130-400); Red Blood Cell (RBC) Count 4.99 mill/uL (4.70-6.10)
[2023-10-31 20:38] LABS: ALT (SGPT) 20 U/L (8-55); AST (SGOT) 15 U/L (5-34); Albumin 3.4 g/dL (3.4-4.8); Alkaline Phosphatase 93 U/L (40-110); Anion Gap 13 mmol/L (10-20); BUN (Urea Nitrogen) 14 mg/dL (8.4-25.7); Bilirubin, Total 0.3 mg/dL (0.2-1.2); Calc. Creatinine Clearance 0 mL/min (70-130); Calcium 8.8 mg/dL (7.8-10.44); Carbon Dioxide 25 mmol/L (23-31); Chloride 102 mmol/L (98-107); Estimated GFR 78; Globulin 2.9 g/dL (2.4-3.5); Glucose 92 mg/dL (80-115); Lipase 37 U/L (8-78); Magnesium 1.9 mg/dL (1.6-2.6); Potassium 4.2 mmol/L (3.5-5.1); Protein, Total 6.3 g/dL (5.8-8.1); Sodium 136 mmol/L (136-145)
[2023-10-31 20:40] LABS: Troponin I Less than 0.010 ng/mL (< 0.028)
[2023-10-31] MEDS ORDERED: Morphine 4 MG/ML VIAL ONE (21:29)
[2023-10-31] MEDS ORDERED: Ondansetron PF 4 MG/2 ML Vial ONE (21:29)
[2023-10-31] MEDS ORDERED: Acetaminophen 500 MG TAB ONE (22:14)
[2023-10-31] MEDS ORDERED: Nitroglycerin 2% Ointment 1 INCH/1 GM Packet ONE (22:14)
[2023-10-31] MEDS ORDERED: Ondansetron PF 4 MG/2 ML Vial IVP PRN (22:27)
[2023-10-31] MEDS ORDERED: Ondansetron ODT 4 MG TAB PO PRN (22:27)
[2023-11-01] MEDS ORDERED: hydrALAZINE 20 MG/ML VIAL SLOW IVP PRN (00:01)
[2023-11-01 00:26] VITALS: BMI 27.5
[2023-11-01 00:54] LABS: Troponin I Less than 0.010 ng/mL (< 0.028)
[2023-11-01 05:02] LABS: #Basophils 0.04 10x3/uL (0.0-0.2); %Basophils 0.6 % (0.0-1.0); %Lymphocytes 32.3 % (21.0-51.0); %Monocytes 10.6 % (0.0-10.0); %Neutrophils 55.1 % (42.0-75.0); Hematocrit 43.2 % (42.0-52.0); Hemoglobin 14.7 g/dL (14.0-18.0); Mean Corpuscular Hemoglobin 31.2 pg (27.0-31.0); Mean Corpuscular Volume 91.7 fL (78.0-98.0); Mean Platelet Volume 8.7 fL (7.4-10.4); Platelet Count 180 10x3/uL (130-400); RBC Distribution Width 12.8 % (11.5-14.5); Red Blood Cell (RBC) Count 4.71 mill/uL (4.70-6.10)
[2023-11-01 05:17] LABS: Anion Gap 13 mmol/L (10-20); BUN (Urea Nitrogen) 12 mg/dL (8.4-25.7); Calc. Creatinine Clearance 96 mL/min (70-130); Calcium 8.3 mg/dL (7.8-10.44); Carbon Dioxide 24 mmol/L (23-31); Chloride 105 mmol/L (98-107); Estimated GFR 91; Glucose 82 mg/dL (80-115); Potassium 3.6 mmol/L (3.5-5.1); Sodium 138 mmol/L (136-145)
[2023-11-01 05:18] LABS: Troponin I Less than 0.010 ng/mL (< 0.028)
[2023-11-01] MEDS: Isosorbide Mononitrate 30 MG ER.TAB PO SCH (08:00)
[2023-11-01] MEDS: Valsartan 80 MG TAB PO SCH (08:01)
[2023-11-01] MEDS: Acetaminophen 325 MG TAB PO PRN (08:02)
[2023-11-01] MEDS: Carvedilol 25 MG TAB PO SCH (08:02)
[2023-11-01] MEDS: Hydrochlorothiazide 25 MG TAB PO SCH (08:06)
[2023-11-01] MEDS ORDERED: Amlodipine 5 MG TAB PO SCH (09:00)
[2023-11-01] MEDS ORDERED: Lisinopril 20 MG TAB PO SCH (09:00)
[2023-11-01] MEDS ORDERED: Iopamidol-370 76% 500 ML MDV (1 ML CHARGE) ONE (10:03)
[2023-11-01] MEDS: Ketorolac Tromethamine 30 MG (1 mL) VIAL IVP SCH (12:41)
[2023-11-01] MEDS: diphenhydrAMINE 50 MG/ML VIAL IVP SCH (12:41)
[2023-11-01] MEDS: Metoclopramide HCl 10 MG (2 mL) VIAL IVP SCH (12:42)
[2023-11-01 15:14] VITALS: TEMP 98
[2023-11-01 16:39] VITALS: BP 178/91
[2023-11-01] MEDS: Amlodipine 5 MG TAB PO SCH (17:21)
== END 2023-11-01 17:57 | disposition home or self-care (01) ==
LOC: ERS 18:18 → 2SW 21:47
PROVIDERS: ADMIT Internal Medicine; ATTEND Hospitalist
PROC: B246YZZ Ultrasonography of Right and Left Heart using Other Contrast (ICD-10-PCS; principal; 2023-10-31)
DX: R07.9 Chest pain, unspecified (principal); I25.110 Atherosclerotic heart disease of native coronary artery with unstable angina pectoris; I16.0 Hypertensive urgency; E78.5 Hyperlipidemia, unspecified; C61 Malignant neoplasm of prostate; F41.9 Anxiety disorder, unspecified; I48.0 Paroxysmal atrial fibrillation; Z96.619 Presence of unspecified artificial shoulder joint; Z90.79 Acquired absence of other genital organ(s); Z79.82 Long term (current) use of aspirin; Z79.899 Other long term (current) drug therapy; Z88.2 Allergy status to sulfonamides; Z88.1 Allergy status to other antibiotic agents; Z88.0 Allergy status to penicillin; Z95.1 Presence of aortocoronary bypass graft
CPT/HCPCS: 70450; 71045; 74175; 80048; 80053; 83690; 83735; 84484 ×3; 85025 ×2; 93005; 93306; 96374; 96375; 99285; G0378 ×3; J2270; J2405; Q9967; 36415

== ENCOUNTER 2025-03-09 17:48 | Inpatient (IN) | payer OTHER ==
[2025-03-09 20:25] VITALS: BMI 25.6
[2025-03-09] MEDS: Acetaminophen 325 MG TAB PO PRN (21:45)
[2025-03-09] MEDS: clonazePAM 1 MG TAB PO PRN (22:35)
[2025-03-09 23:59] LABS: Bacteria/HPF None Seen HPF (None Seen); Glucose, Urine (Dipstick) Normal (Negative); Leukocyte Negative Leu/uL (Negative); Protein, Urine (Dipstick) Negative (Neg-Trace); RBC/HPF Greater than 50 HPF (0-3); Specific Gravity, Urine 1.026 (1.002-1.036)
[2025-03-10 04:31] LABS: #Basophils 0.03 10x3/uL (0.0-0.2); #Eosinophils 0.04 10x3/uL (0.0-0.7); #Monocytes 0.67 10x3/uL (0.11-0.59); #Neutrophils 5.96 10x3/uL (1.40-6.50); %Basophils 0.3 % (0.0-1.0); %Eosinophils 0.5 % (0.0-10.0); %Lymphocytes 23.2 % (21.0-51.0); %Monocytes 7.6 % (0.0-10.0); %Neutrophils 68.1 % (42.0-75.0); Hematocrit 47.5 % (42.0-52.0); Hemoglobin 15.6 g/dL (14.0-18.0); Mean Corpuscular Hemoglobin 29.3 pg (27.0-31.0); Mean Corpuscular Volume 89.3 fL (78.0-98.0); Platelet Count 204 10x3/uL (130-400); Red Blood Cell (RBC) Count 5.32 mill/uL (4.70-6.10); White Blood Cell (WBC) Count 8.76 10x3/uL (4.8-10.8)
[2025-03-10 04:44] LABS: ALT (SGPT) 25 U/L (Less than 45); AST (SGOT) 29 U/L (11-34); Albumin 3.4 g/dL (3.1-4.5); Alkaline Phosphatase 80 U/L (40-110); Anion Gap 12 mmol/L (10-20); BUN (Urea Nitrogen) 16 mg/dL (8.4-25.7); Bilirubin, Total 0.4 mg/dL (0.3-1.2); Calc. Creatinine Clearance 83 mL/min (70-130); Calcium 8.3 mg/dL (7.8-10.44); Carbon Dioxide 27 mmol/L (23-31); Cardiac Risk 7.2 (Less than 4.5); Chloride 105 mmol/L (98-107); Cholesterol 252 mg/dl (< 200 Desired); Globulin 2.9 g/dL (2.4-3.5); Glucose 90 mg/dL (80-115); HDL Cholesterol 35 mg/dL (>60 Neg Risk); LDL Cholesterol, Calculated 190 mg/dL; Potassium 4.0 mmol/L (3.5-5.1); Sodium 140 mmol/L (136-145); Triglycerides 133 mg/dL (Less than 150)
[2025-03-10] MEDS: Enoxaparin 40 MG (0.4 mL) SYRINGE SC SCH (08:54)
[2025-03-10] MEDS: Aspirin 81 mg Enteric Coated Tablet PO SCH (08:54)
[2025-03-10] MEDS: hydrALAZINE 20 MG/ML VIAL SLOW IVP PRN (15:04)
[2025-03-10] MEDS: Apixaban 5 MG TAB PO SCH (20:24)
[2025-03-10] MEDS: Carvedilol 25 MG TAB PO SCH (20:24)
[2025-03-11 04:26] LABS: #Basophils 0.04 10x3/uL (0.0-0.2); #Eosinophils 0.04 10x3/uL (0.0-0.7); #Monocytes 0.89 10x3/uL (0.11-0.59); #Neutrophils 5.32 10x3/uL (1.40-6.50); %Basophils 0.5 % (0.0-1.0); %Eosinophils 0.5 % (0.0-10.0); %Lymphocytes 27.1 % (21.0-51.0); %Monocytes 10.3 % (0.0-10.0); %Neutrophils 61.3 % (42.0-75.0); Hematocrit 46.8 % (42.0-52.0); Hemoglobin 15.5 g/dL (14.0-18.0); Mean Corpuscular Hemoglobin 29.4 pg (27.0-31.0); Mean Corpuscular Volume 88.8 fL (78.0-98.0); Platelet Count 192 10x3/uL (130-400); Red Blood Cell (RBC) Count 5.27 mill/uL (4.70-6.10); White Blood Cell (WBC) Count 8.67 10x3/uL (4.8-10.8)
[2025-03-11 04:54] LABS: ALT (SGPT) 25 U/L (Less than 45); AST (SGOT) 21 U/L (11-34); Albumin 3.4 g/dL (3.1-4.5); Alkaline Phosphatase 78 U/L (40-110); Anion Gap 13 mmol/L (10-20); BUN (Urea Nitrogen) 15 mg/dL (8.4-25.7); Bilirubin, Total 0.6 mg/dL (0.3-1.2); Calc. Creatinine Clearance 62 mL/min (70-130); Calcium 8.5 mg/dL (7.8-10.44); Carbon Dioxide 25 mmol/L (23-31); Chloride 106 mmol/L (98-107); Globulin 2.9 g/dL (2.4-3.5); Glucose 91 mg/dL (80-115); Potassium 4.0 mmol/L (3.5-5.1); Sodium 140 mmol/L (136-145)
[2025-03-11] MEDS: Isosorbide Mononitrate 30 MG ER.TAB.S PO SCH ×2 (08:53→11:57)
[2025-03-12 03:49] LABS: #Basophils 0.03 10x3/uL (0.0-0.2); #Eosinophils 0.04 10x3/uL (0.0-0.7); #Monocytes 0.93 10x3/uL (0.11-0.59); #Neutrophils 4.85 10x3/uL (1.40-6.50); %Basophils 0.4 % (0.0-1.0); %Eosinophils 0.5 % (0.0-10.0); %Lymphocytes 27.5 % (21.0-51.0); %Monocytes 11.5 % (0.0-10.0); %Neutrophils 59.9 % (42.0-75.0); Hematocrit 43.3 % (42.0-52.0); Hemoglobin 14.2 g/dL (14.0-18.0); Mean Corpuscular Hemoglobin 29.3 pg (27.0-31.0); Mean Corpuscular Volume 89.5 fL (78.0-98.0); Platelet Count 193 10x3/uL (130-400); Red Blood Cell (RBC) Count 4.84 mill/uL (4.70-6.10); White Blood Cell (WBC) Count 8.10 10x3/uL (4.8-10.8)
[2025-03-12 04:08] LABS: ALT (SGPT) 23 U/L (Less than 45); AST (SGOT) 18 U/L (11-34); Albumin 3.2 g/dL (3.1-4.5); Alkaline Phosphatase 71 U/L (40-110); Anion Gap 10 mmol/L (10-20); BUN (Urea Nitrogen) 19 mg/dL (8.4-25.7); Bilirubin, Total 0.3 mg/dL (0.3-1.2); Calc. Creatinine Clearance 68 mL/min (70-130); Calcium 8.5 mg/dL (7.8-10.44); Carbon Dioxide 28 mmol/L (23-31); Chloride 105 mmol/L (98-107); Globulin 2.6 g/dL (2.4-3.5); Glucose 92 mg/dL (80-115); Potassium 3.7 mmol/L (3.5-5.1); Sodium 139 mmol/L (136-145)
[2025-03-12 07:27] LABS: ALT (SGPT) 24 U/L (Less than 45); AST (SGOT) 20 U/L (11-34); Albumin 3.3 g/dL (3.1-4.5); Alkaline Phosphatase 73 U/L (40-110); Anion Gap 14 mmol/L (10-20); BUN (Urea Nitrogen) 18 mg/dL (8.4-25.7); Bilirubin, Total 0.4 mg/dL (0.3-1.2); CK (CPK) 63 U/L (30-200); Calc. Creatinine Clearance 70 mL/min (70-130); Calcium 8.5 mg/dL (7.8-10.44); Carbon Dioxide 24 mmol/L (23-31); Chloride 107 mmol/L (98-107); Globulin 2.6 g/dL (2.4-3.5); Glucose 145 mg/dL (80-115); Potassium 3.7 mmol/L (3.5-5.1); Sodium 141 mmol/L (136-145)
[2025-03-12 07:28] LABS: INR-International Normal Ratio 1.1; PTT 36.6 sec (22.9-36.1); Prothrombin Time 14.5 sec (12.0-14.7)
[2025-03-12 07:47] LABS: #Basophils Less than 0.03 10x3/uL (0.0-0.2); #Eosinophils Less than 0.03 10x3/uL (0.0-0.7); #Monocytes 0.71 10x3/uL (0.11-0.59); #Neutrophils 6.68 10x3/uL (1.40-6.50); %Basophils 0.2 % (0.0-1.0); %Eosinophils 0.2 % (0.0-10.0); %Lymphocytes 15.6 % (21.0-51.0); %Monocytes 8.0 % (0.0-10.0); %Neutrophils 75.7 % (42.0-75.0); Hematocrit 43.4 % (42.0-52.0); Hemoglobin 14.7 g/dL (14.0-18.0); Mean Corpuscular Hemoglobin 29.4 pg (27.0-31.0); Mean Corpuscular Volume 86.8 fL (78.0-98.0); Platelet Count 189 10x3/uL (130-400); Red Blood Cell (RBC) Count 5.00 mill/uL (4.70-6.10); White Blood Cell (WBC) Count 8.84 10x3/uL (4.8-10.8)
[2025-03-12] MEDS ORDERED: Iopamidol-370 76% 500 ML MDV (1 ML CHARGE) ONE (08:04)
[2025-03-12] MEDS: Isosorbide Mononitrate 60 MG ER.TAB PO SCH (09:08)
[2025-03-12] MEDS: NIFEdipine XL 30 MG ER.TAB PO SCH (09:19)
[2025-03-13 05:30] LABS: #Basophils Less than 0.03 10x3/uL (0.0-0.2); #Eosinophils 0.05 10x3/uL (0.0-0.7); #Monocytes 0.80 10x3/uL (0.11-0.59); #Neutrophils 5.81 10x3/uL (1.40-6.50); %Basophils 0.2 % (0.0-1.0); %Eosinophils 0.6 % (0.0-10.0); %Lymphocytes 23.7 % (21.0-51.0); %Monocytes 9.1 % (0.0-10.0); %Neutrophils 66.1 % (42.0-75.0); Hematocrit 43.1 % (42.0-52.0); Hemoglobin 14.2 g/dL (14.0-18.0); Mean Corpuscular Hemoglobin 29.1 pg (27.0-31.0); Mean Corpuscular Volume 88.3 fL (78.0-98.0); Platelet Count 188 10x3/uL (130-400); Red Blood Cell (RBC) Count 4.88 mill/uL (4.70-6.10); White Blood Cell (WBC) Count 8.79 10x3/uL (4.8-10.8)
[2025-03-13 05:47] LABS: ALT (SGPT) 23 U/L (Less than 45); AST (SGOT) 18 U/L (11-34); Albumin 3.2 g/dL (3.1-4.5); Alkaline Phosphatase 68 U/L (40-110); Anion Gap 12 mmol/L (10-20); BUN (Urea Nitrogen) 17 mg/dL (8.4-25.7); Bilirubin, Total 0.3 mg/dL (0.3-1.2); Calc. Creatinine Clearance 84 mL/min (70-130); Calcium 8.4 mg/dL (7.8-10.44); Carbon Dioxide 23 mmol/L (23-31); Chloride 105 mmol/L (98-107); Globulin 2.7 g/dL (2.4-3.5); Glucose 91 mg/dL (80-115); Potassium 3.7 mmol/L (3.5-5.1); Sodium 136 mmol/L (136-145)
[2025-03-13] MEDS: NIFEdipine XL 30 MG ER.TAB PO SCH (09:49)
[2025-03-13 12:42] VITALS: BP 158/72; TEMP 98.1
== END 2025-03-13 14:15 | disposition home health service (06) | DRG 65 ==
LOC: 2SE 19:36
PROVIDERS: ADMIT Family Medicine; ATTEND Family Medicine
DX: I63.81 Other cerebral infarction due to occlusion or stenosis of small artery (principal); G81.94 Hemiplegia, unspecified affecting left nondominant side; I48.0 Paroxysmal atrial fibrillation; I10 Essential (primary) hypertension; I25.10 Atherosclerotic heart disease of native coronary artery without angina pectoris; F41.9 Anxiety disorder, unspecified; E78.5 Hyperlipidemia, unspecified; R29.700 NIHSS score 0; Z96.611 Presence of right artificial shoulder joint; Z96.612 Presence of left artificial shoulder joint; R20.0 Anesthesia of skin; Z96.653 Presence of artificial knee joint, bilateral; Z88.0 Allergy status to penicillin; Z88.8 Allergy status to other drugs, medicaments and biological substances; Z90.79 Acquired absence of other genital organ(s); Z79.899 Other long term (current) drug therapy
CPT/HCPCS: 36415; 36416; 70450; 70496; 70498; 70553; 76376; 80053; 80061; 81001; 82550; 83036; 84443; 84484; 85025; 85610; 85730; 93005; 93306; 94760; 96374; J0360; J1650; J2270; Q0162; Q9967

== ENCOUNTER 2025-04-20 11:48 | Inpatient (IN) | payer OTHER, SELFPAY ==
[~2025-04-20 11:48] MED LIST: Iopamidol-370 76% 500 ML MDV (1 ML CHARGE) ONE
[2025-04-20] MEDS ORDERED: Ondansetron PF 4 MG/2 ML Vial ONE (12:36)
[2025-04-20 12:47] LABS: #Basophils Less than 0.03 10x3/uL (0.0-0.2); #Eosinophils 0.03 10x3/uL (0.0-0.7); #Monocytes 0.78 10x3/uL (0.11-0.59); #Neutrophils 8.78 10x3/uL (1.40-6.50); %Basophils 0.2 % (0.0-1.0); %Eosinophils 0.3 % (0.0-10.0); %Lymphocytes 14.5 % (21.0-51.0); %Monocytes 6.9 % (0.0-10.0); %Neutrophils 77.8 % (42.0-75.0); Hematocrit 43.9 % (42.0-52.0); Hemoglobin 15.6 g/dL (14.0-18.0); Mean Corpuscular Hemoglobin 30.3 pg (27.0-31.0); Mean Corpuscular Volume 85.2 fL (78.0-98.0); Platelet Count 228 10x3/uL (130-400); Red Blood Cell (RBC) Count 5.15 mill/uL (4.70-6.10); White Blood Cell (WBC) Count 11.27 10x3/uL (4.8-10.8)
[2025-04-20 13:08] LABS: ALT (SGPT) 30 U/L (Less than 45); AST (SGOT) 28 U/L (11-34); Albumin 3.6 g/dL (3.1-4.5); Alkaline Phosphatase 84 U/L (40-110); Anion Gap 13 mmol/L (10-20); BUN (Urea Nitrogen) 11 mg/dL (8.4-25.7); Bilirubin, Total 0.5 mg/dL (0.3-1.2); CK (CPK) 58 U/L (30-200); Calc. Creatinine Clearance 0 mL/min (70-130); Calcium 8.8 mg/dL (7.8-10.44); Carbon Dioxide 24 mmol/L (23-31); Chloride 103 mmol/L (98-107); Globulin 3.2 g/dL (2.4-3.5); Glucose 101 mg/dL (80-115); Lipase 69 U/L (8-78); Magnesium 1.7 mg/dL (1.6-2.6); Potassium 3.9 mmol/L (3.5-5.1); Sodium 136 mmol/L (136-145)
[2025-04-20 14:00] LABS: PTT 35.0 sec (22.9-36.1)
[2025-04-20 14:01] LABS: INR-International Normal Ratio 1.2; Prothrombin Time 15.2 sec (12.0-14.7)
[2025-04-20] MEDS ORDERED: Ketorolac Tromethamine 30 MG (1 mL) VIAL ONE (14:30)
[2025-04-20 14:34] LABS: Glucose, Urine (Dipstick) Negative (Negative); Leukocyte Negative (Negative); Protein, Urine (Dipstick) Negative (Neg-Trace); Specific Gravity, Urine Less/Equal 1.005 (1.005-1.030)
[2025-04-20 14:40] LABS: Bacteria/HPF None Seen HPF (None Seen); CAUTI Indications for Culture Dysuria,urgency,freq; RBC/HPF Greater than 50 HPF (0-3); WBC/HPF 21-50 HPF (0-3)
[2025-04-20 14:42] LABS: Urine Culture Reflex Yes Yes
[2025-04-20] MEDS ORDERED: Ondansetron PF 4 MG/2 ML Vial IVP PRN (15:11)
[2025-04-20] MEDS ORDERED: cefTRIAXone (ROCEPHIN) 1 GM VIAL ONE (18:01)
[2025-04-20] MEDS: cefTRIAXone\\ROCEPHIN 1 GM in Sodium Chloride 0.9% 100 ML IVPB SCH (18:08)
[2025-04-20] MEDS: Acetaminophen 325 MG TAB PO PRN (23:34)
[2025-04-20] MEDS: Melatonin 3 MG TAB PO PRN (23:34)
[2025-04-21 00:25] VITALS: BMI 26.0
[2025-04-21] MEDS: Ketorolac Tromethamine 30 MG (1 mL) VIAL IVP PRN (05:31)
[2025-04-21] MEDS ORDERED: Rocuronium Bromide 10 MG/ML (10ML VIAL) ONE (08:08)
[2025-04-21] MEDS ORDERED: fentaNYL PF 100 MCG/2 ML SYRINGE ONE (08:08)
[2025-04-21] MEDS ORDERED: Ondansetron PF 4 MG/2 ML Vial ONE ×2 (08:08→08:48)
[2025-04-21] MEDS ORDERED: Lidocaine 1% PF 5 ML VIAL ONE (08:08)
[2025-04-21] MEDS ORDERED: PROPOFOL 20 ML ONE (08:08)
[2025-04-21] MEDS ORDERED: PROPOFOL 200 MG/20 ML VIAL ONE (09:12)
[2025-04-21] MEDS ORDERED: PHENYLEPHRINE-NS 100 MCG/ML 10 ML SYRINGE ONE (09:33)
[2025-04-21] MEDS ORDERED: Glycopyrrolate 0.2 MG/ML 5 ML SYRINGE ONE (09:34)
[2025-04-21 10:58] LABS: #Basophils Less than 0.03 10x3/uL (0.0-0.2); #Eosinophils 0.03 10x3/uL (0.0-0.7); #Monocytes 0.59 10x3/uL (0.11-0.59); #Neutrophils 6.52 10x3/uL (1.40-6.50); %Basophils 0.2 % (0.0-1.0); %Eosinophils 0.4 % (0.0-10.0); %Lymphocytes 15.6 % (21.0-51.0); %Monocytes 6.9 % (0.0-10.0); %Neutrophils 76.7 % (42.0-75.0); Hematocrit 42.9 % (42.0-52.0); Hemoglobin 14.1 g/dL (14.0-18.0); Mean Corpuscular Hemoglobin 29.6 pg (27.0-31.0); Mean Corpuscular Volume 89.9 fL (78.0-98.0); Platelet Count 171 10x3/uL (130-400); Red Blood Cell (RBC) Count 4.77 mill/uL (4.70-6.10); White Blood Cell (WBC) Count 8.51 10x3/uL (4.8-10.8)
[2025-04-21 11:15] LABS: Anion Gap 10 mmol/L (10-20); BUN (Urea Nitrogen) 13 mg/dL (8.4-25.7); Calc. Creatinine Clearance 93 mL/min (70-130); Calcium 8.2 mg/dL (7.8-10.44); Carbon Dioxide 25 mmol/L (23-31); Chloride 105 mmol/L (98-107); Glucose 100 mg/dL (80-115); Potassium 3.8 mmol/L (3.5-5.1); Sodium 136 mmol/L (136-145)
[2025-04-21] MEDS: Oxybutynin 5 MG TAB PO SCH ×2 (15:15→20:28)
[2025-04-22] MEDS: Carvedilol 25 MG TAB PO SCH ×2 (00:58→09:19)
[2025-04-22] MEDS: clonazePAM 1 MG TAB PO PRN (01:03)
[2025-04-22] MEDS: NIFEdipine XL 30 MG ER.TAB PO SCH (09:19)
[2025-04-22] MEDS: Oxybutynin 5 MG TAB PO SCH (09:19)
[2025-04-22 15:01] VITALS: BP 142/79; TEMP 98.4
== END 2025-04-22 13:43 | disposition home or self-care (01) | DRG 661 ==
LOC: ERS 11:48 → ERHOLD 15:20 → T4-B 20:20
PROVIDERS: ADMIT Family Medicine; ATTEND Internal Medicine
PROC: 3E03329 Introduction of Other Anti-infective into Peripheral Vein, Percutaneous Approach (ICD-10-PCS; principal; 2025-04-20)
PROC: 0T768DZ Dilation of Right Ureter with Intraluminal Device, Via Natural or Artificial Opening Endoscopic (ICD-10-PCS; 2025-04-21)
PROC: BT1D1ZZ Fluoroscopy of Right Kidney, Ureter and Bladder using Low Osmolar Contrast (ICD-10-PCS; 2025-04-21)
DX: N13.2 Hydronephrosis with renal and ureteral calculous obstruction (principal); I65.29 Occlusion and stenosis of unspecified carotid artery; I48.0 Paroxysmal atrial fibrillation; I25.10 Atherosclerotic heart disease of native coronary artery without angina pectoris; F41.9 Anxiety disorder, unspecified; F12.90 Cannabis use, unspecified, uncomplicated; Z96.612 Presence of left artificial shoulder joint; Z98.890 Other specified postprocedural states; Z88.1 Allergy status to other antibiotic agents; Z98.52 Vasectomy status; Z86.73 Personal history of transient ischemic attack (TIA), and cerebral infarction without residual deficits; Z88.0 Allergy status to penicillin; Z79.82 Long term (current) use of aspirin; Z79.899 Other long term (current) drug therapy; I11.0 Hypertensive heart disease with heart failure; I50.9 Heart failure, unspecified; Z90.79 Acquired absence of other genital organ(s); Z96.611 Presence of right artificial shoulder joint
CPT/HCPCS: 36415; 70496; 70498; 71045; 74177; 74420; 80048; 80053; 81001; 82550; 83690; 83735; 84443; 84484; 85025; 85610; 85730; 87077; 87086; 93005; 96374; 96375; 96376; C1769; C2617; J0696; J1100; J1885; J2250; J2270; J2272; J2405; J2704; J7120; Q9967

== ENCOUNTER 2025-04-24 11:56 | Outpatient (CLI) | payer OTHER ==
[2025-04-24 14:01] LABS: Bacteria/HPF None Seen HPF (None Seen); Glucose, Urine (Dipstick) Normal (Negative); Leukocyte 25 Leu/uL (Negative); Protein, Urine (Dipstick) 20 mg/dL (Neg-Trace); Specific Gravity, Urine 1.006 (1.002-1.036)
== END 2025-04-24 11:57 | disposition home or self-care (01) ==
LOC: LABBT 11:56
PROVIDERS: ATTEND Urology
DX: Z01.812 Encounter for preprocedural laboratory examination (principal); N20.0 Calculus of kidney
CPT/HCPCS: 81001; 87086

== ENCOUNTER 2025-04-28 22:03 | Emergency (ER) | payer OTHER ==
[2025-04-28 22:32] LABS: #Basophils 0.04 10x3/uL (0.0-0.2); #Eosinophils 0.07 10x3/uL (0.0-0.7); #Monocytes 0.77 10x3/uL (0.11-0.59); #Neutrophils 5.64 10x3/uL (1.40-6.50); %Basophils 0.5 % (0.0-1.0); %Eosinophils 0.8 % (0.0-10.0); %Lymphocytes 21.6 % (21.0-51.0); %Monocytes 9.2 % (0.0-10.0); %Neutrophils 67.5 % (42.0-75.0); Hematocrit 42.8 % (42.0-52.0); Hemoglobin 14.4 g/dL (14.0-18.0); Mean Corpuscular Hemoglobin 29.7 pg (27.0-31.0); Mean Corpuscular Volume 88.2 fL (78.0-98.0); Platelet Count 252 10x3/uL (130-400); Red Blood Cell (RBC) Count 4.85 mill/uL (4.70-6.10); White Blood Cell (WBC) Count 8.35 10x3/uL (4.8-10.8)
[2025-04-28 22:57] LABS: ALT (SGPT) 36 U/L (Less than 45); AST (SGOT) 27 U/L (11-34); Albumin 3.5 g/dL (3.1-4.5); Alkaline Phosphatase 80 U/L (40-110); Anion Gap 8 mmol/L (10-20); BUN (Urea Nitrogen) 16 mg/dL (8.4-25.7); Bilirubin, Total 0.3 mg/dL (0.3-1.2); Calc. Creatinine Clearance 0 mL/min (70-130); Calcium 8.7 mg/dL (7.8-10.44); Carbon Dioxide 26 mmol/L (23-31); Chloride 105 mmol/L (98-107); Globulin 3.3 g/dL (2.4-3.5); Glucose 104 mg/dL (80-115); Lipase 24 U/L (8-78); Potassium 3.9 mmol/L (3.5-5.1); Sodium 135 mmol/L (136-145)
[2025-04-28 23:00] LABS: Bacteria/HPF None Seen HPF (None Seen); CAUTI Indications for Culture Pelvic or flank pain; Glucose, Urine (Dipstick) Normal (Negative); Leukocyte Negative Leu/uL (Negative); Protein, Urine (Dipstick) 20 mg/dL (Neg-Trace); Specific Gravity, Urine 1.011 (1.002-1.036); WBC/HPF 0-3 HPF (0-3)
[2025-04-28 23:02] LABS: Urine Culture Reflex No No
== END 2025-04-29 01:14 | disposition home or self-care (01) ==
LOC: ERS 22:03
DX: N20.1 Calculus of ureter (principal); I11.0 Hypertensive heart disease with heart failure; I50.9 Heart failure, unspecified; Z96.0 Presence of urogenital implants; Z86.73 Personal history of transient ischemic attack (TIA), and cerebral infarction without residual deficits
CPT/HCPCS: 74177; 80053; 81001; 83690; 85025; J2270; 51701; 96374; 96375; Q9967